=== PATIENT | female | born 1950 | race Caucasian/White ===

== ENCOUNTER → 2016-05-20 | Outpatient (CLI) | payer MEDICARE | END | disposition home or self-care (01) | LOC: GMAL 10:29 | PROVIDERS: ATTEND Family Medicine | DX: D51.3 Other dietary vitamin B12 deficiency anemia (principal); E55.9 Vitamin D deficiency, unspecified; M25.579 Pain in unspecified ankle and joints of unspecified foot ==

== ENCOUNTER → 2017-06-28 | Outpatient (CLI) | payer MEDICARE | LOC: GMAL 14:10 | PROVIDERS: ATTEND Family Medicine | DX: D51.3 Other dietary vitamin B12 deficiency anemia (principal); R53.83 Other fatigue; M25.50 Pain in unspecified joint; E55.9 Vitamin D deficiency, unspecified; I10 Essential (primary) hypertension; E78.4 Other hyperlipidemia ==

== ENCOUNTER → 2018-01-07 | Outpatient (CLI) | payer MEDICARE | LOC: GMAL 10:48 | PROVIDERS: ATTEND Family Medicine | DX: D51.3 Other dietary vitamin B12 deficiency anemia (principal); R53.83 Other fatigue; E55.9 Vitamin D deficiency, unspecified; M25.50 Pain in unspecified joint ==

== ENCOUNTER → 2018-07-27 | Outpatient (CLI) | payer MEDICARE ==
--- NOTE | 2018-07-28 10:31 | US ---
EXAM DESCRIPTION: Liver: ULTRASOUND. CLINICAL HISTORY: ELEVATED LFTS COMPARISON: None. TECHNIQUE: Transabdominal scannin-dimensional and Doppler modes. FINDINGS: Gallbladder: normal size, shape, echogenicity; no intraluminal stones or sludge. No fluid around the gallbladder. No wall thickening. 2.1 mm. Non-tender with transducer pressure. Common bile duct: caliber 5.9 mm within normal limits. Liver: Increased echogenicity; contour liver capsule smooth where seen. No fluid around the liver. Intrahepatic biliary ducts normal caliber. Doppler hepatopedal flow portal vein. 1 cm Long axis right lobe 14.5 cm Pancreas: normal size and echogenicity. Duct not seen. Right kidney: long axis measures 9.8 cm. Normal echogenicity. Normal cortical thickness. No perirenal fluid, echogenic stones, or hydronephrosis IMPRESSION: 1. Fatty liver normal size. Normal vascular flow direction and normal ducts. Smooth capsule with no ascites. 2. Gallbladder, common bile duct, and kidney unremarkable. Electronically signed by: Irwin Rust MD 07/28/2018 10:29 AM CDT
== END ==
LOC: US 13:23
PROVIDERS: ATTEND Family Medicine
DX: K76.0 Fatty (change of) liver, not elsewhere classified (principal)

== ENCOUNTER → 2019-09-05 | Outpatient (CLI) | payer MEDICARE | LOC: GMAL 12:27 | PROVIDERS: ATTEND Family Medicine | DX: M10.9 Gout, unspecified (principal); E78.49 Other hyperlipidemia; I10 Essential (primary) hypertension; Z79.899 Other long term (current) drug therapy ==

== ENCOUNTER → 2020-03-11 | Outpatient (CLI) | payer MEDICARE | LOC: GMAL 10:32 | PROVIDERS: ATTEND Family Medicine | DX: D51.3 Other dietary vitamin B12 deficiency anemia (principal); E55.9 Vitamin D deficiency, unspecified; R53.83 Other fatigue; Z79.899 Other long term (current) drug therapy ==